=== PATIENT | male | born 1975 | race Two or more races ===

== ENCOUNTER 2017-01-31 00:25 | Emergency (ER) | payer SELFPAY ==
[2017-01-31 00:26] VITALS: BMI 31.1
[2017-01-31] MEDS ORDERED: Sodium Chloride 0.9% 1,000 ML IV STA (00:45)
[2017-01-31] MEDS ORDERED: DiphenhydrAMINE 50 mg/ml Inj IVP STA (00:45)
[2017-01-31] MEDS ORDERED: EPINEPHrine 1 mg/ml (1:1000) Inj ONE (00:45)
[2017-01-31] MEDS ORDERED: Dexamethasone 4 mg/1 ml ONE (00:47)
--- NOTE | 2017-01-31 00:49 | ED PDOC ---
Arrival/HPI - General Chief Complaint: Allergic Reaction Time Seen by Provider: 01/31/17 00:45 Historian: Patient - History of Present Illness Narrative History of Present Illness (Text): 01/31/17 00:46 41 year old male, whose past medical history includes hypertension and prediabetes, presents to the emergency department for an allergic reaction to soy milk 2 hours ago. Patient states he had soy milk with his cereal and began having itchiness on the chest. Patient reports he took Bendarly, but symptoms remained and tongue began to swell. Patient denies any fever, chills, shortness of breath, nausea, vomiting, diarrhea, urinary symptoms, back pain, neck pain, headache, dizziness, or any other complaints. Time/Duration: 1-3 hours (2 hours ago) Symptom Onset: Sudden Symptom Course: Unchanged Activities at Onset: Light Context: Home Past Medical History - Provider Review Nursing Documentation Reviewed: Yes - Infectious Disease Hx of Infectious Diseases: None - Tetanus Immunization Tetanus Immunization: Unknown - Psychiatric Hx Depression: No Hx Emotional Abuse: No Hx Physical Abuse: No Hx Substance Use: No - Suicidal Assessment Feels Threatened In Home Enviroment: No Family/Social History - Physician Review Nursing Documentation Reviewed: Yes Family/Social History: No Known Family HX Smoking Status: Never Smoked Hx Alcohol Use: No Hx Substance Use: No Hx Substance Use Treatment: No Allergies/Home Meds Allergies/Adverse Reactions: Allergies shakir Allergy (Uncoded 01/28/14 18:11) ANAPHYLAXIS Review of Systems - Physician Review All systems were reviewed & negative as marked: Yes - Review of Systems Constitutional: absent: Fevers, Other (Chills) ENT: Other (tongue swelling ) Respiratory: absent: SOB Gastrointestinal: absent: Diarrhea, Nausea, Vomiting Genitourinary Male: absent: Dysuria, Frequency, Hematuria Musculoskeletal: absent: Back Pain, Neck Pain Skin: Other (itchiness on the chest ) Neurological: absent: Headache, Dizziness Physical Exam - Physical Exam Narrative Physical Exam (Text): Constitutional: No acute distress. Head: Normocephalic. Atraumatic. Eyes: PERRL. ENT: Moist mucous membranes, Mild tongue swelling, no drooling Neck: Supple. Cardiovascular: Regular rate. Chest: No tenderness. Respiratory: Clear to auscultation bilaterally. No stridor GI: Soft. Nontender. Nondistended. Back: No CVA tenderness. Musculoskeletal: No tenderness or swelling of extremities. Skin: No rash. Neurologic: Alert, no focal deficit. Vital Signs Reviewed: Yes Vital Signs Temp Pulse Resp BP Pulse Ox 01/31/17 00:42 157/96 H 01/31/17 00:39 98.6 F 78 18 99 Temperature: Afebrile Blood Pressure: Hypertensive Pulse: Regular Respiratory Rate: Normal Appearance: Positive for: Well-Appearing, Non-Toxic, Comfortable Pain Distress: None Mental Status: Positive for: Alert and Oriented X 3 Medical Decision Making ED Course and Treatment: 01/31/17 00:46 Impression: 41 year old male present for an allergic reaction to soy milk with associated symptoms of tongue swelling, and itchiness on the chest. Plan: -- IV Fluids -- Reassess and disposition Progress Notes: Patient observed in ED for 3 hours. No worsening of condition, feels better. Will discharge home, instructed to return to ED immediately for any worsening symptoms. - Medication Orders Current Medication Orders: Discontinued Medications Dexamethasone (Decadron Inj) 10 mg IVP STAT STA Stop: 01/31/17 00:47 Last Admin: 01/31/17 00:53 Dose: Dexamethasone (Decadron Inj) Confirm Administered Dose 12 mg .ROUTE .STK-MED ONE Stop: 01/31/17 00:48 Last Admin: 01/31/17 00:52 Dose: 10 mg Diphenhydramine HCl (Benadryl) 50 mg IVP STAT STA Stop: 01/31/17 00:46 Last Admin: 01/31/17 00:48 Dose: 50 mg Epinephrine HCl (Epinephrine) Confirm Administered Dose 1 mg .ROUTE .STK-MED ONE Stop: 01/31/17 00:46 Last Admin: 01/31/17 00:52 Dose: Famotidine (Pepcid) 20 mg IVP STAT STA Stop: 01/31/17 00:47 Last Admin: 01/31/17 00:50 Dose: 20 mg Sodium Chloride (Sodium Chloride 0.9%) 1,000 mls @ 999 mls/hr IV .Q1H1M STA Stop: 01/31/17 01:45 Last Admin: 01/31/17 00:57 Dose: 999 mls/hr Methylprednisolone (Solu-Medrol) Confirm Administered Dose 125 mg .ROUTE .STK- MED ONE Stop: 01/31/17 00:46 Last Admin: 01/31/17 00:52 Dose: - Scribe Statement The provider has reviewed the documentation as recorded by the Scribe Provider Attestation: Hussein Clarke All medical record entries made by the Scribe were at my direction and personally dictated by me. I have reviewed the chart and agree that the record accurately reflects my personal performance of the history, physical exam, medical decision making, and the department course for this patient. I have also personally directed, reviewed, and agree with the discharge instructions and disposition. Disposition/Present on Arrival - Present on Arrival Any Indicators Present on Arrival: No History of DVT/PE: No History of Uncontrolled Diabetes: No Urinary Catheter: No History of Decub. Ulcer: No History Surgical Site Infection Following: None - Disposition Have Diagnosis and Disposition been Completed?: Yes Diagnosis: Allergic reaction Disposition: HOME/ ROUTINE Disposition Time: 03:25 Patient Plan: Discharge Condition: STABLE Discharge Instructions (ExitCare): General Allergic Reaction (ED) Prescriptions: Dexamethasone [Decadron] 10 mg PO ONCE #5 tab DiphenhydrAMINE [Benadryl] 2 cap PO Q8 #25 cap Epinephrine [Epipen] 0.3 mg IJ ONCE #1 auto.injct Referrals: Lexi Hennessy DO [Primary Care Provider] - Follow up with primary Forms: [employer] (Welsh)
[2017-01-31 03:41] VITALS: BP 144/90; PULSE 82; RESP 17; TEMP 98.2; O2SAT 98
== END 2017-01-31 04:06 | disposition home or self-care (01) ==
LOC: ED 00:25
DX: T78.1XXA Other adverse food reactions, not elsewhere classified, initial encounter (principal); L29.9 Pruritus, unspecified; X58.XXXA Exposure to other specified factors, initial encounter; R73.03 Prediabetes; I10 Essential (primary) hypertension
CPT/HCPCS: 96361; 96374; 96375; 99282; J1100; J1200; J7040